=== PATIENT | female | born 1965 | race Asian ===

== ENCOUNTER 2023-12-02 12:25 | Emergency (ER) | payer OTHER ==
[~2023-12-02] VITALS: Ht 162.6 cm; Wt 50.0 kg
[2023-12-02 12:28] VITALS: BP 170/80; PULSE 95; RESP 20; TEMP 98.6; O2SAT 98
[2023-12-02] MEDS: HYDROCODONE/ACETAMINOPHEN 5/325MG TABLET PO STA (14:15)
[2023-12-02] MEDS ORDERED: CYCL5TAB MT (16:11)
[2023-12-02] MEDS ORDERED: NAPR-681 PO (16:11)
== END 2023-12-02 16:22 | disposition home or self-care (01) ==
LOC: ER 12:25
DX: S16.1XXA Strain of muscle, fascia and tendon at neck level, initial encounter (principal); S00.83XA Contusion of other part of head, initial encounter; V98.8XXA Other specified transport accidents, initial encounter; Y93.89 Activity, other specified; Y92.89 Other specified places as the place of occurrence of the external cause; Y99.8 Other external cause status
CPT/HCPCS: 71250; 74176; 99284